=== PATIENT | male | born 1975 | race Hispanic/Latino ===

== ENCOUNTER 2025-01-16 19:37 | Emergency (ER) | payer SELFPAY ==
[2025-01-16] MEDS ORDERED: ONDANSETRON 4 MG/2 ML VIAL ONE (20:13)
[2025-01-16] MEDS ORDERED: KETOROLAC 30 MG/ML INJ ONE (20:13)
[2025-01-16] MEDS ORDERED: NA CHLORIDE 0.9% 1,000 ML ONE (20:14)
[2025-01-16] MEDS ORDERED: TDAP (DIPHTH,PERTUSS(ACELL),TET VAC) 0.5 ML VIAL IMVAC ONE (20:14)
[2025-01-16] MEDS ORDERED: MORPHINE 4 MG/ML SYR ONE (20:14)
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
[2025-01-16] MEDS ORDERED: LIDOCAINE 1% 20 ML MDV ONE (22:15)
[2025-01-16] MEDS ORDERED: PROMETHAZINE 25 MG TABLET ONE (22:15)
[2025-01-16] MEDS ORDERED: HYDROCODONE/APAP 5/325 MG TAB ONE (22:16)
[2025-01-16] MEDS ORDERED: CEFAZOLIN SODIUM 2 GM/VIAL ONE (22:16)
[2025-01-16] MEDS ORDERED: SMZ./TMP. 800/160 MG TABLET ONE (22:16)
[2025-01-16] MEDS ORDERED: NA CHLORIDE 0.9% 100 ML ONE (22:18)
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
[2025-01-17 01:21] LABS: Absolute Lymphocytes (CBC) 1.5 K/uL (0.7-4.9); Hematocrit 36.3 % (39.6-49.0); Hemoglobin 12.7 g/dL (13.6-17.9); MCH 32.6 pg (27.0-35.0); MCHC 34.9 g/dL (32.0-36.0); MCV 93.4 fL (80-100); MPV 8.6 fL (7.6-11.3); Nucleated RBC Absolute Count 0.0 (0-0); Nucleated Red Blood Cells % 0.0 % (0-0); RBC Red Blood Cell Count 3.89 M/uL (4.33-5.43); White Blood Count 6.80 thou/uL (4.3-10.9)
[2025-01-17 01:34] LABS: ALT/SGPT 51.0 U/L (16-61); AST/SGOT 62.0 U/L (15-37); Albumin 3.1 g/dL (3.4-5.0); Albumin/Globulin Ratio 1.1 (1.1-1.8); Alkaline Phosphatase 59.0 U/L (45-117); Anion Gap 10.2 mEq/L (5.0-15.0); BUN Blood Urea Nitrogen 6.0 mg/dL (7-18); Globulin 2.9 g/dL (2.3-3.5); Glucose Level 91.0 mg/dL (74-106); Lipase 20.0 U/L (13-75); Potassium 4.2 mEq/L (3.5-5.1)
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
[2025-01-17 08:19] VITALS: TEMP 97.8
[2025-01-17 08:49] VITALS: O2SAT 98
[2025-01-17 08:50] VITALS: BP 105/74
== END 2025-01-17 06:09 | disposition home or self-care (01) ==
LOC: ER 19:37
DX: S82.101B Unspecified fracture of upper end of right tibia, initial encounter for open fracture type I or II (principal); S30.810A Abrasion of lower back and pelvis, initial encounter; S60.222A Contusion of left hand, initial encounter; V29.99XA Rider (driver) (passenger) of other motorcycle injured in unspecified traffic accident, initial encounter
CPT/HCPCS: 12031; 36415; 70450; 71260; 72125; 74177; 80053; 82077; 82565; 83690; 85025; 90715; 96361; 96365; 96366; 96372; 96375; 99285; J2003; J2405; J7030; Q0169; Q9967